=== PATIENT | female | born 1980 | race Caucasian/White ===

== ENCOUNTER → 2018-01-15 11:58 | Outpatient (CLI) | payer SELFPAY ==
--- NOTE | 2018-01-15 12:40 | RAD_ITS ---
STUDY: HYSTEROSALPINGOGRAM. REASON FOR EXAM: Female, 37 years old. Infertility. FLUOROSCOPY TIME (if supplied): (0:56) minutes/seconds TECHNIQUE: History of cystogram was performed by the game producer. Imaging was provided. COMPARISON: None. 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 The right fallopian tube is patent. 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 Electronically Signed: Bob Hernandez MD at 13:52 EDT Tel [phone], Service support ,
== END ==
PROVIDERS: Family Provider Nurse Practitioner; PCP Nurse Practitioner; Visit Provider Obstetrics & Gynecology
DX: N97.9 Female infertility, unspecified (principal)
CPT/HCPCS: 58340; 74740; Q9967

== ENCOUNTER → 2018-05-29 10:41 | Outpatient (CLI) | payer SELFPAY ==
[2018-05-29 12:00] LABS: Progesterone Level 12.55 ng/mL (See Comment)
== END ==
PROVIDERS: Visit Provider Obstetrics & Gynecology
DX: N97.0 Female infertility associated with anovulation (principal)
CPT/HCPCS: 36415; 84144

== ENCOUNTER → 2018-10-19 14:13 | Outpatient (CLI) | payer SELFPAY ==
[2018-10-19 16:01] LABS: Free T3 3.2 pg/mL (2.18-3.98); T4 Free Direct 0.93 ng/dL (0.76-1.46); Thyroid Stim Hormone (TSH) 3.26 uIU/mL (0.358-3.74)
[2018-10-19 16:05] LABS: Progesterone Level 31.45 ng/mL (See Comment)
[2018-10-19 17:38] LABS: Chlamydia Trachomatis by PCR Negative (Negative); Neisserai gonorrhoeae by PCR Negative (Negative); Probe Check PASS; Sample Adequacy Control PASS; Specimen Processing Control PASS
== END ==
PROVIDERS: Family Provider Nurse Practitioner; PCP Nurse Practitioner; Referring Provider Obstetrics & Gynecology; Visit Provider Obstetrics & Gynecology
DX: O99.281 Endocrine, nutritional and metabolic diseases complicating pregnancy, first trimester (principal); E03.9 Hypothyroidism, unspecified; Z3A.00 Weeks of gestation of pregnancy not specified
CPT/HCPCS: 36415; 84144; 84439; 84443; 84481; 87491; 87591

== ENCOUNTER 2019-02-21 09:24 | Outpatient (CLI) | payer SELFPAY ==
[2019-02-21 09:45] LABS: Bacteria 0 SEEN /hpf (None Seen); Mucous, Urine 0 SEEN /hpf (<or=2+); Red Blood Cells-Urine 0 SEEN /hpf (0-5); Squamous Epithelial Cells - UA 0 SEEN /hpf (5-10)
[2019-02-21 09:46] VITALS: BMI 30.9
[2019-02-21 09:46] LABS: Color, Urine Yellow (Yellow); Glucose, Dipstick Normal (Normal); Ketone-Dipstick 15 mg/dl (Negative); Leukocyte Esterase-Dipstick 25 /ul (Negative); Nitrite-Dipstick Negative (Negative); Occult Blood-Urine Negative /ul (Negative); Protein-Dipstick Negative (Negative); Urine Bilirubin Dipstick Negative (Negative); Urine Clarity Clear (Clear); Urine Urobilinogen Normal (Normal)
[2019-02-21 09:53] LABS: White Blood Cells 0-5 SEEN /hpf (0-5)
[2019-02-21] MEDS: Betamethasone/Betamethasone 30 MG/5 ML Vial 12 MG IM (10:46)
[2019-02-21 11:05] LABS: Absolute Neutrophil Count 6.1 X10^3/uL (2.0-7.7); Basophil# 0.01 X10^3/uL; Basophil% 0.1 % (0-1); Eosinophil# 0.04 X10^3/uL; Eosinophils% 0.5 % (0-5); Hematocrit 34.2 % (37-47); Hemoglobin 11.5 g/dl (12.0-15.0); Lymphocyte % 18.4 % (19-41); Mean Corp Hgb Conc 33.6 g/gl (32-36); Mean Corpuscular Hgb 30.3 pg (27.0-32.0); Mean Platelet Vol. 9.7 fl (6.2-12.0); Monocyte# 0.47 X10^3/uL; Monocyte% 5.8 % (0-10); Neutrophil # 6.11 X10^3/uL (2.7-7.7); POSITIVE COUNT NO; POSITIVE DIFFERENTIAL NO; POSITIVE MORPHOLOGY NO; Platelet Count 205 K/mm3 (150-450); RBC Distribution Width CV 13.8 % (11.6-14.6); RBC Distribution Width SD 45.4 fl (35.1-43.9); White Blood Count 8.2 K/mm3 (4.4-11.0)
[2019-02-21] MEDS: Magnesium Sulfate 4gm/100mL 4 GM/100 ML IV.SOLN. IV (11:07)
[2019-02-21] MEDS: Indomethacin 25 MG Capsule 50 MG PO (11:17)
[2019-02-21] MEDS: Magnesium Sulfate 20 GM/500 ML BAG IV (11:34)
[2019-02-21 11:44] LABS: Probe Check PASS
[2019-02-21 11:47] LABS: Group B Strep DNA By PCR POSITIVE (Negative)
--- NOTE | 2019-02-21 12:05 | OB.TRI.PN_ITS ---
Progress Notes Laboratory Studies: Laboratory Tests 02/21/19 02/21/19 02/21/19 Range/Units 10:30 10:30 10:10 WBC 8.2 (4.4-11.0) K/mm3 RBC 3.80 L (4.2-5.4) M/mm3 Hgb 11.5 L (12.0-15.0) g/dl Hct 34.2 L (37-47) % MCV 90.0 (81-99) fL MCH 30.3 (27.0-32.0) pg MCHC 33.6 (32-36) g/gl RDW 13.8 (11.6-14.6) % RDW Differential 45.4 H (35.1-43.9) fl Plt Count 205 (150-450) K/mm3 MPV 9.7 (6.2-12.0) fl Immature Gran % (Auto) 0.200 (0.0-0.9) % Neut % (Auto) 75.0 H (47-70) % Lymph % (Auto) 18.4 L (19-41) % [place] % (Auto) 5.8 (0-10) % Eos % (Auto) 0.5 (0-5) % Baso % (Auto) 0.1 (0-1) % Absolute Neuts (auto) 6.1 (2.0-7.7) X10^3/uL Absolute Lymphs (auto) 1.50 (0.83-4.51) X10^3/ul Total Counted Not Reportable Urine Color (Yellow) Urine Clarity (Clear) Urine pH (5.0 - 8.0) Ur Specific [place] (1.002-1.030) Urine Protein (Negative) mg/dl Urine Glucose (UA) (Normal) mg/dl Urine Ketones (Negative) mg/dl Urine Occult Blood (Negative) /ul Urine Nitrite (Negative) Urine Bilirubin (Negative) mg/dL Urine Urobilinogen (Normal) mg/dl Ur Leukocyte Esterase (Negative) /ul Urine RBC (0-5) /hpf Urine WBC (0-5) /hpf Ur Squamous Epith Cells (5-10) /hpf Urine Bacteria (None Seen) /hpf Urine Mucus (<or=2+) /hpf Group B Strep DNA POSITIVE H (Negative) Fibronectin Specimen Comment Not Reportable Blood Type O NEGATIVE Antibody Screen NEGATIVE 02/21/19 02/21/19 Range/Units 10:10 09:25 WBC (4.4-11.0) K/mm3 RBC (4.2-5.4) M/mm3 Hgb (12.0-15.0) g/dl Hct (37-47) % MCV (81-99) fL MCH (27.0-32.0) pg MCHC (32-36) g/gl RDW (11.6-14.6) % RDW Differential (35.1-43.9) fl Plt Count (150-450) K/mm3 MPV (6.2-12.0) fl Immature Gran % (Auto) (0.0-0.9) % Neut % (Auto) (47-70) % Lymph % (Auto) (19-41) % [place] % (Auto) (0-10) % Eos % (Auto) (0-5) % Baso % (Auto) (0-1) % Absolute Neuts (auto) (2.0-7.7) X10^3/uL Absolute Lymphs (auto) (0.83-4.51) X10^3/ul Total Counted Urine Color Yellow (Yellow) Urine Clarity Clear (Clear) Urine pH 7.0 (5.0 - 8.0) Ur Specific [place] 1.010 (1.002-1.030) Urine Protein Negative (Negative) mg/dl Urine Glucose (UA) Normal (Normal) mg/dl Urine Ketones 15 H (Negative) mg/dl Urine Occult Blood Negative (Negative) /ul Urine Nitrite Negative (Negative) Urine Bilirubin Negative (Negative) mg/dL Urine Urobilinogen Normal (Normal) mg/dl Ur Leukocyte Esterase 25 H (Negative) /ul Urine RBC 0 SEEN (0-5) /hpf Urine WBC 0-5 SEEN (0-5) /hpf Ur Squamous Epith Cells 0 SEEN (5-10) /hpf Urine Bacteria 0 SEEN (None Seen) /hpf Urine Mucus 0 SEEN (<or=2+) /hpf Group B Strep DNA (Negative) Fibronectin Cancelled Specimen Comment Blood Type Antibody Screen
[2019-02-21 14:11] LABS: Fetal Fibronectin POSITIVE
== END 2019-02-21 11:50 | disposition home or self-care (01) ==
LOC: WPOUT 09:27 → OBT 09:28
PROVIDERS: Family Provider Nurse Practitioner; PCP Nurse Practitioner; Visit Provider Obstetrics & Gynecology
DX: O60.02 Preterm labor without delivery, second trimester (principal); Z3A.25 25 weeks gestation of pregnancy
CPT/HCPCS: 96365; 96368; 96372; 59025; 59050; 81001; 82731; 85025; 86850; 86900; 87086; 87088; 87653; 99218; J7120; G0378; J0702

== ENCOUNTER 2019-02-26 18:08 | Outpatient (CLI) | payer SELFPAY ==
[2019-02-26 18:33] VITALS: BMI 28.9
[2019-02-26 18:40] LABS: Bacteria 0 SEEN /hpf (None Seen); Mucous, Urine 0 SEEN /hpf (<or=2+)
[2019-02-26 18:46] LABS: Color, Urine Yellow (Yellow); Glucose, Dipstick Normal (Normal); Ketone-Dipstick Negative (Negative); Leukocyte Esterase-Dipstick 25 /ul (Negative); Nitrite-Dipstick Negative (Negative); Occult Blood-Urine 10 /ul (Negative); Protein-Dipstick Negative (Negative); Urine Bilirubin Dipstick Negative (Negative); Urine Clarity Clear (Clear); Urine Urobilinogen Normal (Normal); Urine pH 6.5 (5.0 - 8.0)
[2019-02-26 19:01] LABS: Red Blood Cells-Urine 0-5 SEEN /hpf (0-5); Squamous Epithelial Cells - UA 0-5 SEEN /hpf (5-10); White Blood Cells 0-5 SEEN /hpf (0-5)
--- NOTE | 2019-02-28 16:16 | OB.TRI.PN ---
Progress Notes Date of Service: 02/26/19 Progress Note: Patient presented for elevated temp at home. Patient states that she had a 99 degree temp at home and also had some contractions and wanted evaluated. Patient was admitted at the beginning of the week for labor and a positive fibronectin up in [place]. No cervical change was made. heart tones reassuring [place]: Irritability but no regular contractions Assessment and plan: Threatened labor afebrile UA and culture sent, no cervical change patient dilated half to 1 cm thick and high DC home labor precautions Laboratory Studies: Laboratory Tests 02/26/19 Range/Units 18:30 Urine Color Yellow (Yellow) Urine Clarity Clear (Clear) Urine pH 6.5 (5.0 - 8.0) Ur Specific [place] 1.010 (1.002-1.030) Urine Protein Negative (Negative) mg/dl Urine Glucose (UA) Normal (Normal) mg/dl Urine Ketones Negative (Negative) mg/dl Urine Occult Blood 10 H (Negative) /ul Urine Nitrite Negative (Negative) Urine Bilirubin Negative (Negative) mg/dL Urine Urobilinogen Normal (Normal) mg/dl Ur Leukocyte Esterase 25 H (Negative) /ul Urine RBC 0-5 SEEN (0-5) /hpf Urine WBC 0-5 SEEN (0-5) /hpf Ur Squamous Epith Cells 0-5 SEEN (5-10) /hpf Urine Bacteria 0 SEEN (None Seen) /hpf Urine Mucus 0 SEEN (<or=2+) /hpf
== END 2019-02-26 20:40 | disposition home or self-care (01) ==
LOC: WPOUT 18:12 → WP 18:14
PROVIDERS: Family Provider Nurse Practitioner; PCP Nurse Practitioner; Visit Provider Obstetrics & Gynecology
DX: O60.00 Preterm labor without delivery, unspecified trimester (principal); Z3A.00 Weeks of gestation of pregnancy not specified
CPT/HCPCS: 59025; 59050; 81001; 99218; G0378

== ENCOUNTER 2019-05-06 04:50 | Inpatient (IN) | payer SELFPAY ==
[2019-05-06 04:20] VITALS: BMI 32.3
[2019-05-06 04:48] LABS: ROM Internal Control Test YES-OK TO RESULT pt. (Internal QC)
[2019-05-06 04:49] LABS: ROM Patient Test POSITIVE (Negative)
[2019-05-06 05:45] LABS: Group B Strep DNA By PCR POSITIVE (Negative); Probe Check PASS
[2019-05-06] MEDS: Lactated Ringers 1,000 ML 50 ML IV (05:45)
[2019-05-06] MEDS: Ondansetron 4 MG/2 ML Vial IV (06:02)
[2019-05-06] MEDS: 0.9% Saline Lock 10 ML Syringe IV (06:02)
[2019-05-06 06:50] LABS: Absolute Lymphocyte Count 2.22 X10^3/uL (0.83-4.51); Absolute Neutrophil Count 6.4 X10^3/uL (2.0-7.7); Basophil# 0.02 X10^3/uL; Basophil% 0.2 % (0-1); Eosinophil# 0.03 X10^3/uL; Eosinophils% 0.3 % (0-5); Hematocrit 38.5 % (37-47); Hemoglobin 12.9 g/dL (12.0-15.0); Lymphocyte # 2.22 X10^3/ul (4.0); Mean Corp Hgb Conc 33.5 g/dL (32-36); Mean Corpuscular Hgb 29.9 pg (27.0-32.0); Mean Corpuscular Volume 89.1 fL (81-99); Mean Platelet Vol. 10.9 fl (6.2-12.0); Monocyte# 0.99 X10^3/uL; Monocyte% 10.2 % (0-10); NRBC Flagged by Analyzer 0 % (0-5); Neutrophil # 6.35 X10^3/uL (2.7-7.7); Neutrophil % 65.7 % (47-70); Platelet Count 226 K/mm3 (150-450); RBC Distribution Width CV 13.4 % (11.6-14.6); RBC Distribution Width SD 43.8 fl (35.1-43.9); Red Blood Count 4.32 M/mm3 (4.2-5.4); White Blood Count 9.7 K/mm3 (4.4-11.0)
[2019-05-06] MEDS: Oxytocin 30 units/NS 500 ml 30 UNITS/500 ML IV.SOLN 334 UNITS IV (07:25)
[2019-05-06 10:09] LABS: HIV - WCH Non-Reactive (Nonreactive)
[2019-05-06 12:00] VITALS: BP 106/64; PULSE 94; RESP 18; TEMP 36.3
--- NOTE | 2019-05-06 14:41 | PCM.OPRPT ---
Vaginal Delivery Maternal Presentation: Active Labor, Spontaneous Rupture of Membranes Medical Reason for Induction: Premature Rupture of Membranes Amniotic Membrane Rupture Type: Spontaneous at home Rupture of Membrane time: 0230 Amniotic Fluid Description: Clear Final GUDELIA: 06/05/19 Final GUDELIA Source: LMP Gestational age: 35 Weeks and 5 Days doctor who attended delivery (if requested by OB): Shaniqua Khan - 35 weeks, PPROM, light mec at delivery Date of Procedure: 05/06/19 Pre-Operative Diagnosis: IUP PPROM at 35w 5 days Post-Operative Diagnosis: IUP PPROM at 35w 5 days Surgery/ Procedure Performed: Spontaneous Vaginal Delivery Type of Anesthesia: Local with 1% lidocaine Description of Procedure: Progressed rapidly to compplete, pushed well, and delivevered a vigorous female OA to ELMO; loose nuchal cord x 1, delivered through, shoulders delivered easily; light meconium noted; placed on mother's abdomen, delayed cord clamping per mother's request x 3 minutes, then cord clamped x 2 and cut by CNM at request of FOB; placenta delivered spontaneously, Agustin mechanism, intact, 3-vessel cord, central insertionl; 2nd degree laceration repaired with 3-0 Vicryl, good hemostasis obtained; infant APGARS 8/9; EBL 350 Presentation: Vertex, ELMO Placental Delivery Description: Spontaneous Placenta Disposition: [facility] Cord Vessel Description: 3 Vessels Cord Entanglement: Around neck x 1, loose Estimated Blood Loss: 350 Infant A gender: Female (1 minute): 8 (5 minute): 9 Laceration: Midline, 2nd degree Medications given after delivery: IV Pitocin Complications: None
[2019-05-06 16:30] VITALS: BP 102/60; PULSE 93; RESP 16; TEMP 37.1
[2019-05-06] MEDS: Ibuprofen 600 MG Tablet PO (16:34)
--- NOTE | 2019-05-06 17:29 | HP.PCM_ITS ---
History and Physical Date of Admission: 05/06/19 n Date: 10/19/2018 Name: BELGICA PRYOR Age: 38 Date of : 1980 HISTORY OF PRESENT ILLNESS: On 05/06/19 at 0600, Belgica Hinson is a 38 year old female 1 0 1 0 1, presented for: PROM Belgica is a , GUDELIA 06/05/2018 by certain LMP. She is 35 weeks 3 days gestation today; she states that at about 0230 she was awakened by contractions at which point she expeirenced a gush of clear fluid from her vagina; she reports active FM, denies VB, MCCLOUD, RUQ pain or visual changes. She had been planning a home with her community service director, but has chosen to give in hospital in light of this early ROM; she declines epidural, nitrous, or IV pain medications at this time. ALLERGIES: No Known Drug Allergies MEDICATIONS HISTORY: CURRENT MEDICATIONS: Supplements and PNV REVIEW OF SYSTEMS: GENERAL - Denies fever, or chills SKIN - Denies skin changes EYES - Denies visual changes EARS - Denies difficulty hearing NOSE - Denies nasal congestion or bleeding MOUTH - Denies sore throat or difficulty swallowing NECK - Denies pain or swelling RESPIRATORY - Denies shortness of breath or wheezing CARDIOVASCULAR - Denies palpitations or chest pain GASTROINTESTINAL - Denies nausea, vomiting, diarrhea, constipation GENITOURINARY - Denies dysuria, frequency of urination, urgency, or hesitancy MUSCULOSKELETAL - Denies joint or muscle pain NEUROLOGICAL - Denies localized numbness or weakness PSYCHIATRIC - Denies depression or anxiety ENDOCRINE - Denies heat or cold intolerance, weight loss or gain HEMATO-IMMUNOLOGIC - Denies excesive bleeding with cuts PAST HISTORY: Breast/Ovarian/Colon Cancers - Denies Infections - chicken pox Illnesses - back pain, forgetfulness Accidents - None History of Abnormal PAPS - Denies Hospitalizations - surgery unicornuate uterus; SURGICAL HISTORY: 1. Appendectomy 2. oral surgery 3. tube check in [place] 4. HSG 01/2018 MENSTRUAL HISTORY: LMP Known- ApproximateAmount/Duration - 5-7 days, Regularity - regular, Frequency - monthly days, LMP - 08/29/18, Age Onset Menarche - 14 PAST PREGNANCIES: Total Pregnancies - 3; Full Term Pregnancies - 1; Premature - 0; Abortions, Induced - 0; Abortions, Spontaneous - 1; Ectopics - 0; Multiple Births - 0; Living Children - 1 FAMILY HISTORY: Mother - Hypertension; SOCIAL HISTORY: Alcohol Use - denies drinking Smoking - denies smoking Diet - no special diet Lifestyle - Exercise - minimal Seat Belt Use - occasional and just when riding in the front Employer - stays at home Illicit Drug Use - denies use of street drugs Sexual Activity - Residence - rents home Spouse-Sig Other Name - Naveen Spouse-Sig Other Occupation - [email or web address] Children Name(s) - Ian Control - PHYSICAL EXAMINATION Afebrile, Vital Signs Stable External Genitial Vagina - non-tender without lesions Urethra/Urethral Meatus - non-tender Bladder - non-tender Vagina - vaginal lepe are pink and moist without loss of rugae and no evidence of atropy CONSTITUTIONAL - NAD, well nourished, and well developed SKIN - No rash, lesions, or ulcers HEENT - normocephalic, atraumatic, sclerae anicteric NECK - No nodes, no nuchal rigidity and thyroid normal size and texture LYMPH NODES - Palpation of lymph nodes in neck and groins within normal limits LUNGS - CTA x2 without wheezes, crackles or rales CARDIAC - Regular rate and rhythm without rubs, murmurs, or gallops BREAST - No dominant masses, no tenderness, no axillary adenopathy, no nipple discharge, no skin changes ABDOMEN - Gravid, without hepatosplenomegaly, distention, masses, rebound, or guarding; normal bowel sounds; no hernias EXTREMITIES - No edema or calf tenderness NEUROLOGICAL - normal gait, normal balance, normal motor PSYCHIATRIC - A and O to time, place, person, mood and affect PAP SMEAR - done and GC and Chlamydia done prenatally DETAILED PELVIC EXAM Cervix - without cervical motion tenderness, soft, anterior, 5/100/0 Uterus - Gravid, santosh every 2-3 minutes, moderate to firm intensity by palpation ASSESSMENT: IUP at 35w5d PPROM GBS unknown Cat 1 FHTs Active labor PLAN BY DIAGNOS: Rapid GBS IV fluids GBS prophylaxis Anticipate vaginal delivery
[2019-05-06 20:25] VITALS: BP 105/74; PULSE 82; RESP 16; TEMP 36.8
[2019-05-06 23:40] VITALS: BP 115/71; PULSE 80; RESP 16; TEMP 36.5
--- NOTE | 2019-05-07 02:53 | NURSING ---
this RN explained rubella immunity to the patient and her spouse. pt aware she is rubella non-immune and offered information on the MMR vaccine.pt states she does not want the vaccine administered at this time. pt verbalizes understanding of education provided and this RN informed her she could ask any questions she may have, even at a later time pertaining to this.
[2019-05-07] MEDS: Ibuprofen 600 MG Tablet PO ×2 (02:55→13:28)
[2019-05-07 03:13] VITALS: BP 101/60; PULSE 91; RESP 16; TEMP 36.6
--- NOTE | 2019-05-07 07:17 | PCM.PN.OB ---
Subjective: Patient without complaints. Breast-feeding going well. Wants to go home later today if baby is able to go. - Physical Exam Vital Signs Temp Pulse Resp BP 98 F 91 16 101/60 05/07/19 03:13 05/07/19 03:13 05/07/19 03:13 05/07/19 03:13 Oxygen Delivery Method Room Air Weight: 204 lb 9.423 oz Body Mass Index (BMI) 32.3 Intake and Output for Last 24 Hours 05/05/19 05/06/19 05/07/19 23:59 23:59 23:59 Intake Total 620.83 / 620.83 600 / 600 Output Total 600 / 600 Balance 20.83 / 20.83 600 / 600 Laboratory Tests Past 24 Hrs 05/06/19 05/06/19 05:45 05:45 HIV 1&2 Antibody Non-Reactive Blood Type O NEGATIVE Antibody Screen NEGATIVE Medical Necessity - Tobacco Use Smoking Status: Never smoker Assessment/Plan Doing well day #1 status post routine spontaneous vaginal delivery and will discharge to home if baby is able to go. Home-going instructions given.
[2019-05-07 08:00] VITALS: BP 103/64; PULSE 72; RESP 16; TEMP 36.4
[2019-05-07 13:19] VITALS: BP 97/56; PULSE 90; RESP 16; TEMP 36.6
[2019-05-07 19:57] VITALS: BP 120/72; PULSE 75; RESP 18; TEMP 36.6
[2019-05-08 01:55] VITALS: BP 110/69; PULSE 80; RESP 18; TEMP 36.8
--- NOTE | 2019-05-08 07:47 | PCM.PN.OB ---
Subjective: PPD#2 Doing well. baby needs bili level rechecked. States she has seen Dr Tammy Callahan. Delivered by Neeta Caceres CNM and Dr Choe. Saw Sirena Feliciano for care. Plans to follow up appt with Dr Tammy Callahan. Nursing. No concerns voiced . minimal bleeding and pain - Physical Exam General: Alert, Oriented x3, Cooperative, No apparent distress HEENT: Atraumatic, EOMI Neck: Supple Psych/Mental Status: Normal Affect Vital Signs Temp Pulse Resp BP 98.2 F 80 18 110/69 05/08/19 01:55 05/08/19 01:55 05/08/19 01:55 05/08/19 01:55 Oxygen Delivery Method Room Air Weight: 92.8 kg Body Mass Index (BMI) 32.3 Intake and Output for Last 24 Hours 05/06/19 05/07/19 05/08/19 23:59 23:59 23:59 Intake Total 620.83 / 620.83 600 / 600 Output Total 600 / 600 Balance 20.83 / 20.83 600 / 600 Medical Necessity - Tobacco Use Smoking Status: Never smoker Assessment/Plan PPD#2 Stable pp. Dischg home. RTO in 6 wk for pp check, Dr Tammy Callahan. Dischg instructions on chart. Rh NEG. A NEG No RhoGAM
--- NOTE | 2019-05-08 07:51 | DCINST_ITS ---
Discharge Diet: No Restrictions Discharge Activity: May Shower, May Take a Tub Bath May resume sexual activity in: 4-6 weeks Additional Activity Instructions:: Nothing in the vagina for 4-6 weeks. You may return to work/school in 6 weeks. Additional Instructions: If you experience any of the following, contact your healthcare provider. * Bleeding that soaks a pad every hour for 2 hours * Fever 100.4 or higher * Unrelieved abdominal pain * Problems urinating (including inability to urinate or burning while urinating). * Visual changes * Severe headache * Flu-like symptoms * Pain or redness in one of both of your breasts * Pain, warmth, tenderness or swelling in your legs, especially the calf area * Frequent nausea and vomiting * Symptoms of depression or anxiety If you experience any of the following, call 911 or go to the nearest Emergency Room. * Chest pain * Problems breathing * Seizure activity * Partial or complete paralysis of a body part, slurred speech, weakness or drooping of the face, or a sudden inability to walk or hold your balance Allergies/Adverse Reactions: Allergies No Known Allergies Allergy (Verified 02/21/19 09:42) Medications to take at Discharge Calcium 02/21/19 Herbal Drugs 02/21/19 Magnesium 02/21/19 Pnv No.95/Ferrous Fum/Folic AC [ Caplet] 1 each PO DAILY 02/21/19 Progesterone,Micronized [Prometrium] 02/21/19 Please Follow Up With: Shannon Way MD - [phone] When: Call to make an appointment with your doctor in 6 weeks. Primary Care Physician: Charisma Jean [Primary Care Provider] - Test Results: Test results from this visit will be discussed in further detail at your follow- up appointment, if applicable. Proposed Discharge Date: 05/08/19
--- NOTE | 2019-05-08 07:51 | PCM.DCVAG ---
Discharge Diet: No Restrictions Discharge Activity: May Shower, May Take a Tub Bath May resume sexual activity in: 4-6 weeks Additional Activity Instructions:: Nothing in the vagina for 4-6 weeks. You may return to work/school in 6 weeks. Additional Instructions: If you experience any of the following, contact your healthcare provider. Bleeding that soaks a pad every hour for 2 hours Fever 100.4 or higher Unrelieved abdominal pain Problems urinating (including inability to urinate or burning while urinating). Visual changes Severe headache Flu-like symptoms Pain or redness in one of both of your breasts Pain, warmth, tenderness or swelling in your legs, especially the calf area Frequent nausea and vomiting Symptoms of depression or anxiety If you experience any of the following, call 911 or go to the nearest Emergency Room. Chest pain Problems breathing Seizure activity Partial or complete paralysis of a body part, slurred speech, weakness or drooping of the face, or a sudden inability to walk or hold your balance Allergies/Adverse Reactions: Allergies No Known Allergies Allergy (Verified 02/21/19 09:42) Medications to take at Discharge Calcium 02/21/19 Herbal Drugs 02/21/19 Magnesium 02/21/19 Pnv No.95/Ferrous Fum/Folic AC [ Caplet] 1 each PO DAILY 02/21/19 Progesterone,Micronized [Prometrium] 02/21/19 Please Follow Up With: Shannon Way MD - [phone] When: Call to make an appointment with your doctor in 6 weeks. Primary Care Physician: Charisma Jean [Primary Care Provider] - Test Results: Test results from this visit will be discussed in further detail at your follow-up appointment, if applicable. Proposed Discharge Date: 05/08/19
[2019-05-08 10:00] VITALS: BP 110/70; PULSE 70; RESP 16; TEMP 37
--- NOTE | 2019-05-08 12:12 | NURSING ---
0900 Pt states she wants to go home today and would rather come back tomorrow morning with the baby for a repeat bili. She would prefer to not incur any additional charges by utilizing the bili light this am with a recheck later today. Pt and agreeable to returning to this hospital's lab tomorrow am and waiting until the bili has been resulted prior to leaving in order for the medical cash poster/hospitalist composition molder to review and determine further management of infant care. Pt and voice that they will return with tomorrow morning prior to noon and will stay until results are available and ped has been notified. 1105 Discharged to home with baby via wheelchair to car.
== END 2019-05-08 11:05 | disposition home or self-care (01) | DRG 806 ==
LOC: WP 05:18 → WPOUT 05:18
PROVIDERS: Advanced Practice Midwife; Admitting Provider Obstetrics & Gynecology; Family Provider Nurse Practitioner; PCP Nurse Practitioner; Referring Provider Obstetrics & Gynecology; Visit Provider Obstetrics & Gynecology
DX: O42.013 Preterm premature rupture of membranes, onset of labor within 24 hours of rupture, third trimester (principal); O71.4 Obstetric high vaginal laceration alone; Z37.0 Single live birth; O77.0 Labor and delivery complicated by meconium in amniotic fluid; O69.81X0 Labor and delivery complicated by cord around neck, without compression, not applicable or unspecified; Z3A.35 35 weeks gestation of pregnancy
CPT/HCPCS: 59025; 59050; 84112; 85025; 86703; 86850; 86900; 86901; 87653; 99218; J7120; A4216; G0378; J2405

== ENCOUNTER → 2020-11-02 16:45 | Outpatient (CLI) | payer SELFPAY ==
[2020-11-02 14:19] VITALS: BMI 30.7
[2020-11-07 16:17] LABS: HPV APTIMA, High Risk Negative (Negative)
== END ==
PROVIDERS: PCP Nurse Practitioner; Referring Provider Nurse Practitioner Women's Health; Visit Provider Nurse Practitioner Women's Health
DX: Z12.4 Encounter for screening for malignant neoplasm of cervix (principal)
CPT/HCPCS: 87624; 88175; G0145

== ENCOUNTER → 2020-12-08 14:18 | Outpatient (CLI) | payer SELFPAY ==
[2020-11-02 14:19] VITALS: BMI 30.7
--- NOTE | 2020-12-08 14:23 | US_ITS ---
ACR Level 3 findings have been noted. An addendum which confirms receipt of the report will follow. INDICATION: pelvic pain EXAMINATION: US Pelvis Non OB Complete With Transvaginal Imaging TECHNIQUE: Transabdominal and transvaginal pelvic ultrasound was performed. Grayscale, spectral waveform, and color flow Doppler evaluation of the adnexa. COMPARISON: None. FINDINGS: UTERUS: Anteverted. The uterus measures 7.9 x 6.3 x 5.4 cm. Slightly complex 2.4 cm myometrial cyst in the posterior uterine fundus. The endometrial stripe measures 7 mm in AP diameter which is within normal limits. RIGHT OVARY: Measures 5.1 x 4.0 x 3.2 cm. Enlarged, normal echogenicity. Within the right ovary there is a complex hypoechoic solid and cystic mass measuring 2.3 x 2.8 x 2.8 cm with a small hyperechoic mural nodular component. There is normal arterial inflow and venous outflow present in the right ovary. LEFT OVARY: Measures 3.5 x 2.2 x 2.1 cm. Non-enlarged, normal echogenicity. There is normal arterial inflow and venous outflow present in the left ovary. FREE FLUID: None. US/Transvaginal Non- IMPRESSION: 3 cm complex right ovarian solid and cystic mass is indeterminate. Leading differential includes immature versus mature teratoma. Recommend MR Pelvis with and without contrast for further evaluation. Slightly complex 2.4 cm myometrial cyst in the posterior uterine fundus Electronically Signed: Nate Romero MD at 16:38 EDT Tel , Service support ,
--- NOTE | 2020-12-08 14:23 | US_ITS ---
ACR Level 3 findings have been noted. An addendum which confirms receipt of the report will follow. INDICATION: pelvic pain EXAMINATION: US Pelvis Non OB Complete With Transvaginal Imaging TECHNIQUE: Transabdominal and transvaginal pelvic ultrasound was performed. Grayscale, spectral waveform, and color flow Doppler evaluation of the adnexa. COMPARISON: None. FINDINGS: UTERUS: Anteverted. The uterus measures 7.9 x 6.3 x 5.4 cm. Slightly complex 2.4 cm myometrial cyst in the posterior uterine fundus. The endometrial stripe measures 7 mm in AP diameter which is within normal limits. RIGHT OVARY: Measures 5.1 x 4.0 x 3.2 cm. Enlarged, normal echogenicity. Within the right ovary there is a complex hypoechoic solid and cystic mass measuring 2.3 x 2.8 x 2.8 cm with a small hyperechoic mural nodular component. There is normal arterial inflow and venous outflow present in the right ovary. LEFT OVARY: Measures 3.5 x 2.2 x 2.1 cm. Non-enlarged, normal echogenicity. There is normal arterial inflow and venous outflow present in the left ovary. FREE FLUID: None. US/Pelvic (Non ) IMPRESSION: 3 cm complex right ovarian solid and cystic mass is indeterminate. Leading differential includes immature versus mature teratoma. Recommend MR Pelvis with and without contrast for further evaluation. Slightly complex 2.4 cm myometrial cyst in the posterior uterine fundus Electronically Signed: Nate Romero MD at 16:38 EDT Tel , Service support ,
== END ==
PROVIDERS: PCP Nurse Practitioner; Referring Provider Nurse Practitioner Women's Health; Visit Provider Nurse Practitioner Women's Health
DX: R10.2 Pelvic and perineal pain (principal)
CPT/HCPCS: 76830; 76856; 93976

== ENCOUNTER → 2020-12-19 11:02 | Outpatient (CLI) | payer SELFPAY ==
[2020-11-02 14:19] VITALS: BMI 30.7
--- NOTE | 2020-12-19 11:07 | MRI_ITS ---
STUDY: MR PELVIS WITH T WITHOUT CONTRAST REASON FOR EXAM: Female, 40 years old. enlarged uterus; ovarian cyst TECHNIQUE: Standardized fat and water weighted pulse sequences were obtained in all 3 orthogonal planes, pre-and post contrast administration. 15ML IV DOTAREM was administered for the contrast portion of the examination. COMPARISON: None. FINDINGS: Normal urinary bladder. Normal visualized small intestine. Normal visualized colon. Normal visualized uterus. There are multiple follicles in both ovaries of varying sizes including a 2.5 cm exophytic septated follicle extending into the superior aspect of the cul-de-sac. There is a 3.2 cm oval T1 hyperintense, T2 hypointense, and nonenhancing mass of the right ovary consistent with a hemorrhagic or proteinaceous cyst or a fatty ovarian dermoid. The mass is more isoechoic on ultrasound rather than hyperechoic. CT may be useful. There is no pelvic fluid. There is no pelvic mass lesion or lymphadenopathy. Normal visualized pelvic arteries. Normal osseous structures. Normal abdominal wall. MRI/Pelvis W/WO Contrast IMPRESSION: 1. Normal uterus. 2. 3.2 cm mass of the right ovary which may represent a hemorrhagic or proteinaceous cyst or dermoid. CT would be useful to confirm fat within the mass. The mass demonstrates signal loss on both the fast spin echo T2 and inversion weighted images but is not hyperechoic on ultrasound. Electronically Signed: Matt Anderson MD at 13:00 EDT Tel , Service support ,
== END ==
PROVIDERS: PCP Physician Assistant; Referring Provider Nurse Practitioner Women's Health; Visit Provider Nurse Practitioner Women's Health
DX: N83.201 Unspecified ovarian cyst, right side (principal); Q51.4 Unicornate uterus; R10.2 Pelvic and perineal pain
CPT/HCPCS: 72197; A9575

== ENCOUNTER 2021-02-13 08:42 | Day surgery (SDC) | payer SELFPAY ==
[2020-12-27 14:34] VITALS: BMI 35.0
[2021-01-25 14:04] VITALS: BMI 35.0
[2021-02-12 15:20] LABS: Hematocrit 42.2 % (37-47); Hemoglobin 13.9 g/dL (12.0-15.0); Mean Corp Hgb Conc 32.9 g/dL (32-36); Mean Corpuscular Hgb 29.3 pg (27.0-32.0); Mean Corpuscular Volume 88.8 fL (81-99); Mean Platelet Vol. 9.8 fl (6.2-12.0); Platelet Count 305 K/mm3 (150-450); RBC Distribution Width CV 12.4 % (11.6-14.6); RBC Distribution Width SD 40.7 fl (35.1-43.9); Red Blood Count 4.75 M/mm3 (4.2-5.4); White Blood Count 8.7 K/mm3 (4.4-11.0)
[2021-02-13] VITALS (8 sets, daily range): BP systolic 92–119; BP diastolic 61–81; PULSE 60–80; RESP 16–18; TEMP 36.2–36.9; O2SAT 98–100; BMI 29.9
[2021-02-13 09:05] LABS: Internal QC Validated? YES +Cl - CLEAR BKGD
[2021-02-13 09:06] LABS: Pregnancy, Urine Negative Negative
[2021-02-13] MEDS: Lactated Ringers 1,000 ML 100 ML IV (09:42)
--- NOTE | 2021-02-13 10:15 | OV_PTH ---
PATIENT: MARICRUZ PRYOR LOC[place] [facility] [place][id number] AGE/SX: 40/F ROOM: RE02/13/[address]: Dr. Khadijah Bunch MD : 1980 BED: DIS: 02/13/2021 SPEC #: [id number] RECD: 02/13/21 12:52 STATUS: BRI REYing #: [id number] SHEREEN: 02/13/21 10:[address]: Khadijah Bunch DEPT: SURGICAL PATHOLOGY RECD BY: Elizabeth Burns ENTERED: 02/14/21 08:30 SP TYPE: OVARY OTHR DR: Edwin Engle PA-C Tissues: Right ovary Procedures: Surgery Specimen Level IV HEADER OPERATION: Diagnostic laparoscopy, fulguration endometriosis PRE-OP DIAGNOSIS: Right ovarian cyst, pelvic pain TISSUE SUBMITTED: Right ovary and fallopian tube MICROSCOPIC DIAGNOSIS Right ovary and fallopian tube, salpingo-oophorectomy: Ovary and fallopian tube with focal changes suggestive of endometriosis. Benign paratubal cyst. COMMENT Case has been reviewed in consultation with Dr. Rendon who concurs with the above diagnosis. IDC:SJ MICROSCOPIC DESCRIPTION Slides are reviewed. GROSS DESCRIPTION Received in fixative is one container labeled with the patient's name and designated right ovary and fallopian tube. The specimen consists of a dark pritchett ovary measuring 5 x 3 x 2 cm and weighing 15 gm. Also present in the specimen container is a fallopian tube measuring 8 cm in length and 1 cm in diameter. A distinct fimbriated end is not visible. Serial sections of presumed ovary and fallopian tube do not reveal mass lesions. Telephone Station Repairer sections are submitted in four cassettes. The remainder of the ovary is submitted in cassettes 5-9./ AM:rg 02/14/21 TC:3 CPT: 67753
--- NOTE | 2021-02-13 10:48 | HP.PCM.OB_ITS ---
HPI - General HPI Mauro PRYOR, is a 40 F who presents for diagnostic laparoscopy, possible fulguration of endometriosis, possible right ovarian cystectomy vs salpingoophorectomy, possible left, possible chromopertubation for pelvic pain and ovarian cyst PFSH PFSH Medical History (Updated 02/06/21 @ 14:26 by Bridgette Mustafa) Gastric reflux History of IBS Home Medications Calcium 1 tab PO/SL DAILY 02/21/19 [History Last Taken 05/04/19 21:00] cholecalciferol (vitamin D3) 125 mcg (5,000 unit) capsule 125 mcg PO DAILY 11/02/20 [History Last Taken Unknown] multivitamin 1 tab PO DAILY 11/02/20 [History Last Taken Unknown] Allergy/AdvReac Type Severity Reaction Status Date / Time No Known Allergies Allergy Verified 02/13/21 09:08 Surgical History S/P appendectomy Social History number of children: 2 current occupation: housewife Smoking Status: Never smoker alcohol intake: never substance use type: does not use seatbelt use: always do you feel safe at home: Yes additional social history: Naveen bowie History 3 Elective abortions Hx Para 2 Spontaneous abortions 1 Hx # Term Pregnancies 1 Ectopic pregnancies Hx # Pregnancies 1 Multiple births # of living children 2 Past Pregnancies Del. Date Name GA/Weeks Outcome Route Bth Weight Gen Labor Lgth Anesthesia Del Locatn Provider FOB 09/01/11 Ian 40 live - full term 8.8 Male Home Lali Hodge 05/06/19 Coby 36 live - full term 7.5 Female [facility] Daija Hodge ROS Eyes Eyes: Reports systems reviewed and no addt'l complaints, except as documented ENT HEENT: Reports systems reviewed and no addt'l complaints, except as documented Cardiovascular Cardiovascular: Reports systems reviewed and no addt'l complaints, except as documented Respiratory/Chest Respiratory/Chest: Reports systems reviewed and no addt'l complaints, except as documented Gastrointestinal Gastrointestinal: Reports systems reviewed and no addt'l complaints, except as documented Genitourinary Genitourinary: Reports systems reviewed and no addt'l complaints, except as documented Musculoskeletal Musculoskeletal: Reports systems reviewed and no addt'l complaints, except as documented Integumentary Integumentary: Reports systems reviewed and no addt'l complaints, except as documented Neurologic Neurologic: Reports systems reviewed and no addt'l complaints, except as documented Psychiatric Psychiatric: Reports systems reviewed and no addt'l complaints, except as documented Endocrine Endocrinology: Reports systems reviewed and no addt'l complaints, except as documented Hematologic/Lymphatic Hematologic/Lymphatic: Reports systems reviewed and no addt'l complaints, except as documented Allergic/Immunologic Allergic/Immunologic: Reports systems reviewed and no addt'l complaints, except as documented Vital Signs Vital Signs Vital Signs: 02/13/21 09:15 Temperature 97.6 F L Temperature Source Temporal Pulse Rate 68 Respiratory Rate 18 Respiratory Pattern Normal Blood Pressure 109/75 Blood Pressure Mean 86 Blood Pressure Source Monitor Blood Pressure Position Semi-Fowlers Blood Pressure Location Right Arm Pulse Ox 98 Oxygen Delivery Method Room Air Weight Weight: 184 lb 4.903 oz Body Mass Index (BMI) 29.9 Physical Exam Const alert, oriented x3, no apparent distress, average body habitus, healthy appearing and well nourished HEENT normocephalic and moist oral mucous membranes Head and Scalp: atraumatic Eyes PERRL and EOMs intact bilaterally Neck full ROM Resp normal respiratory effort, no retractions and no use of accessory muscles Cardio regular rate and regular rhythm GI soft to palpation, non-tender and non-distended Extremity normal to inspection and full ROM Skin no rashes or lesions noted Neuro no focal motor deficits and no sensory deficits noted Psych mental status grossly normal, affect normal, speech normal and activity/motor behavior normal Labs Labs Labs: Blood Type O NEGATIVE Antibody Screen NEGATIVE Hct 42.2 % (37-47) Hgb 13.9 g/dL (12.0-15.0) HIV 1&2 Antibody Non-Reactive (Nonreactive) C.trachomatis DNA (PCR) Negative (Negative) Group B Strep DNA POSITIVE (Negative) H Rhogam given: No Assessment & Plan (1) Pelvic pain: PLAN: Presents for pre-op visit for diagnostic laparoscopy, possible fulguration of endometriosis, possible right ovarian cystectomy vs salping oophorectomy, possible left, possible chromopertubation for pelvic pain and ovarian cyst. No changes to medical history or medications ROS negative All questions answered Surgical risks reviewed in depth at last visit. Denies concerns. Consent signed in office (2) Right ovarian cyst:
--- NOTE | 2021-02-13 11:00 | OP.PCM_ITS ---
Problems Associated Problem List Diagnoses (1) Right ovarian cyst: (2) Pelvic pain: Report of Operation Date of Procedure: 02/13/21 Pre-Operative Diagnosis: Pelvic pain, ovarian cyst Post-Operative Diagnosis: Endometriosis with endometrioma Surgery/Procedure Performed:: Diagnostic laparoscopy, lysis of adhesions, fulguration of endometriosis, right salpingo-oophorectomy, chromotubation Description of Surgical Findings:: Uterus with small cyst in the right cornual region. Right hydrosalpinx and right endometrioma with right tube and ovary densely adherent posterior wall of uterus. Normal left tube and ovary aside from evidence of endometriosis on left ovary. Multiple implants of endometriosis anterior to the bladder. Implants noted on the round ligaments bilaterally. To peritoneal windows noted in the posterior cul-de-sac with multiple small areas of endometriosis noted. On encounter adherent to anterior abdominal wall from prior surgery garment parts cutter machine: Trina Soni Type of Anesthesia: General Specimen's removed: Right tube and ovary Estimated Blood Loss (mL): 50 cc Fluids Replaced: 2000 cc Description of Procedure: The patient was taken to the operating room where general anesthesia was obtained without difficulty. She was prepped and draped in the dorsal lithotomy position with yellofin stirrups. A weighted speculum was placed in the posterior aspect of the vagina and the anterior lip of the cervix was grasped with a single-tooth tenaculum. The uterus was sounded and found to be 10 cm. A Zumi uterine manipulator was placed without difficulty and all other instruments were removed from the vagina. Gloves were changed and attention was directed to the abdomen. The umbilicus was grasped with towel clamps. 10cc of 0.25% marcaine was used to anesthetize the umbilicus. A 5mm incision was made at Turner's point. A veress needle was inserted without difficulty and intra-abdominal placement was confirmed using the water-drop test. The abdomen was insufflated to 15 mmHg and the veress needle was removed. A 5mm optiview trochar was then placed under direct visualization. Initial survey of the abdominal cavity revealed no evidence of trauma. The above findings were noted. Additional 5 mm ports were then placed at the umbilicus and in the left lower quadrant. Initial survey revealed the above findings. The uterine cyst was grasped and ruptured spontaneously for clear fluid. A [place] LigaSure was used to take down the adhesions between the omentum and the anterior abdominal wall. The LigaSure device was then used to to cauterize and transect to the right fallopian tube at the cornual region. This incision was carried down partially through the mesosalpinx. The ureter was identified and noted to be well away from the infundibulopelvic ligament. The IP ligament was grasped cauterized and transected using the [place] LigaSure. This incision was carried up across the remainder of the mesosalpinx and the tube and ovary were from the uterus. These were placed in the anterior cul-de-sac. [place] grasper was then attached to monopolar cautery and used to fulgurate all areas of endometriosis. Chromopertubation was then performed and spill was noted from the left fallopian tube. A polar cautery was then used to obtain hemostasis at the site of the ovary and hemostasis was noted. Maxwell was applied over operative field. The umbilical port was extended to accommodate a 12 mm port and a 12 mm port was placed under direct visualization. The right tube and ovary were placed in a bag and removed from the umbilical port without difficulty. Hemostasis was again noted and all instruments were removed from the abdominal cavity. 0 Vicryl was used in a ualqmt-di-obrvy fashion to close the fascial defect at the umbilical port site. Skin was closed in a subcuticular fashion using 4-0 Monocryl. Sterile dressings were applied. Uterine manipulator was then removed without difficulty. The patient was awakened from anesthesia and taken to recovery room in stable condition. Complications None apparent Admit VTE Documentation VTE Present on Admission: No VTE Mechan Device Prophylaxis: SCD's VTE Pharm Prophylaxis ordered?: No Multi Select Codes Urinary/Genital Urinary/Genital CPT Codes: 25591 Chromotubation, 56059 Laproscopic BS/O (right salpingoophorectomy) and 54934 Laproscopic ablation endometriosis
--- NOTE | 2021-02-13 11:00 | PCM.DC ---
Discharge Instructions Diet Discharge Diet: No restrictions Activity Discharge Activity: May Not Drive (While on narcotic pain medication) and May Shower May resume sexual activity in: 1-2 weeks Lifting Restrictions: No lifting greater than 20 pounds until postop visit Dressing / Incision Call your doctor if your incision/area has: Continuous Slow Oozing, Sudden Increased Bleeding, Increased Pain/ Swelling, Increased Redness, Foul Smelling Discharge and Swelling at the incision site Call your doctor if you observe: Fever of 101 or Higher, Inability to urinate, Using more than 1 pad per hour, Shortness of breath, Dizziness, Fainting spells, Chest pain and Uncontrolled pain Remove Dressing in: 1 week Cleanse incision/area with: Soap & Water Follow Up Care Please Follow Up With: Khadijah Bunch MD When: 2 weeks Test Results: Test results from this visit will be discussed in further detail at your follow-up appointment, if applicable. Discharge Plan Admission Primary Reason for Your Visit: Pelvic pain Attending Provider: Khadijah Bunch Primary Care Provider: Edwin Engle Instructions Patient Instructions: Pelvic Laparoscopy Discharge Orders/Prescriptions Prescriptions: New naproxen 250 MG tablet 250 - 500 mg PO Q8H PRN PRN (Reason: MILD PAIN) Qty: 30 RF: 1 oxycodone 5 mg capsule 5 mg PO Q6H PRN (Reason: pain) 3 Days Qty: 10 RF: 0 Continued cholecalciferol (vitamin D3) 125 mcg (5,000 unit) capsule 125 mcg PO DAILY RF: 0 multivitamin [Daily Multi-Vitamin] Tablet 1 tab PO DAILY RF: 0 Calcium 1 tab PO/SL DAILY RF: 0 Referrals / Follow Up: Edwin Engle DO [Primary Care Provider] - Disposition Disposition (needs filled in before D/C Order can be placed): Home, self care
[2021-02-13] MEDS: Bupivacaine 0.25% 30 ML Vial (12:35)
[2021-02-13] MEDS: HYDROcodone Bitartrate/Apap 5/325 Tablet PO (14:27)
== END 2021-02-13 15:58 | disposition home or self-care (01) ==
LOC: SDC 08:49 → AC 08:50
PROVIDERS: Anesthesiology; PCP Physician Assistant; Referring Provider Obstetrics & Gynecology; Visit Provider Obstetrics & Gynecology
PROC: (CPT 49320; principal; 2021-02-13 10:00)
DX: N80.0 Endometriosis of uterus (principal); R10.2 Pelvic and perineal pain; N83.8 Other noninflammatory disorders of ovary, fallopian tube and broad ligament; K21.9 Gastro-esophageal reflux disease without esophagitis; K58.9 Irritable bowel syndrome, unspecified; Q51.4 Unicornate uterus
CPT/HCPCS: 00840; 58661; 58662; 36415; 81025; 85027; 86850; 86900; 86901; 87426; 88305; C9803; J7120; J2405; Q9968

== ENCOUNTER → 2023-12-26 | Outpatient (CLI) | payer SELFPAY ==
[2024-01-01 13:08] LABS: HPV APTIMA, High Risk Negative (Negative)
== END | disposition home or self-care (01) ==
LOC: LABSPEC 16:26
PROVIDERS: PCP Physician Assistant; Referring Provider Registered Nurse; Visit Provider Registered Nurse
DX: Z12.4 Encounter for screening for malignant neoplasm of cervix (principal)
CPT/HCPCS: 87070; 87205; 87624; 88175; G0145

== ENCOUNTER → 2024-01-20 | Outpatient (CLI) | payer SELFPAY ==
--- NOTE | 2024-01-20 14:15 | US_ITS ---
STUDY: ULTRASOUND OF THE FEMALE PELVIS - COMPLETE REASON FOR EXAM: Female, 43 years old. Irregular bleeding. -- Perineal pain LMP: December 01, 2023. TECHNIQUE: Transabdominal and Transvaginal TECHNICAL QUALITY: Adequate. COMPARISON: Comparison is made with prior study December 08, 2020. FINDINGS: The uterus is anteverted and is in a midline position. The uterus measures 6.9 cm x 5.6 cm x 4.3 cm. Normal uterine cervix. The endometrium measures 5.0 mm in thickness, and is heterogeneous (striated). There is no demonstrated endometrial mass. Heterogeneous appearance of the myometrium although no focal fibroid is seen. I.U.D. - The patient does not have an I.U.D. The right ovary is visualized. The right ovary measures 3.4 cm x 3 cm x 2.9 cm. There is a 2.4 cm x 2.7 cm x 2.6 cm right ovarian cyst. There is no visualized right adnexal mass or complex lesion. There is normal arterial and normal venous vascularity. The left ovary is visualized. The left ovary measures 2.8 cm x 2.5 cm x 1.4 cm. There is no left ovarian cyst or ovarian mass. There is no visualized left adnexal mass or complex lesion. There is normal arterial and normal venous vascularity. There is no fluid in the cul-de-sac. The pre void volume of the bladder was 300 ml. US/Pelvic w/ Transvaginal IMPRESSION: Heterogeneous appearance of the myometrium suggestive of fibroid change although no discrete fibroid is seen. 2.4 cm x 2.7 cm x 2.6 on the right ovarian cyst. Electronically Signed: Bob Hernandez MD at 14:08 EDT ,
== END | disposition home or self-care (01) ==
PROVIDERS: PCP Physician Assistant; Referring Provider Registered Nurse; Visit Provider Registered Nurse
DX: N92.6 Irregular menstruation, unspecified (principal)
CPT/HCPCS: 76830; 76856